=== PATIENT | male | born 1955 | race Caucasian/White ===

== ENCOUNTER 2017-07-02 14:46 | Emergency (ER) | payer BC, OTHER ==
[2017-07-02 15:11] VITALS: BP 140/86; PULSE 65; RESP 18; TEMP 98; O2SAT 96
--- NOTE | 2017-07-02 16:14 | CT ---
PROCEDURE: CT Cervical Spine without contrast HISTORY: Decrease range of motion left shoulder. COMPARISON: None available. TECHNIQUE: Axial computed tomography images were obtained of the cervical spine without the use of intravenous contrast. Coronal and sagittal reformatted images were created and reviewed. Radiation dose: Total exam DLP = 506.59 mGy-cm. This CT exam was performed using one or more of the following dose reduction techniques: Automated exposure control, adjustment of the mA and/or kV according to patient size, and/or use of iterative reconstruction technique. FINDINGS: VERTEBRAE: The vertebral bodies are maintained in height. Normal vertebral alignment is maintained. There is no evidence of fracture. DISCS/SPINAL CANAL/NEURAL FORAMINA: There is severe intervertebral disc space narrowing at C5-6. Lesser disc space narrowing is noted at C6-7 and C7-T1. Consistent with multifocal degenerative disc disease. There is moderate left and severe right neural foraminal stenosis at the C4-5 intervertebral disc space level. . There is mild central spinal stenosis. There is moderate left and severe right neural foraminal stenosis at the C5-6 level. There is a disc/ridge complex at C5-6, asymmetric towards the right. There is central spinal stenosis at C5-6. There is mild disc bulge at C6-7. There is no focal herniation. There is moderate to severe right and moderate left neural foraminal stenosis at C6-7. There is no central spinal stenosis. There is no disc bulge or herniation at C7-T1. There is no central spinal stenosis. There is no neural foraminal stenosis. PARASPINAL SOFT TISSUES: There is calcification seen within the nuchal ligament, of questionable clinical significance. OTHER FINDINGS: None. IMPRESSION: No fracture/dislocation. Multilevel degenerative disc disease. Central spinal stenosis at C5-6 and mild central spinal stenosis at C4-5. . Multilevel neural foraminal stenosis. Please note that computed tomography is an insensitive method for evaluation of cervical spinal disc disease. Consider evaluation with magnetic resonance imaging on a nonemergent basis. .
--- NOTE | 2017-07-02 18:00 | C.PDOC ---
History Of Present Illness 62 yr old male presents to the ER with left neck pain and upper back pain for the past 2 weeks. Patient states the pain radiates down the left arm. Patient states he has been using Advil with mild relief and had acupuncture done yesterday. Patient denies direct trauma, chest pain, SOB, weakness or numbness. Time Seen by Provider: 07/02/17 15:12 Chief Complaint (Nursing): Back Pain History Per: Patient History/Exam Limitations: no limitations Onset/Duration Of Symptoms: Days (2 weeks) Past Medical History Reviewed: Historical Data, Nursing Documentation, Vital Signs Vital Signs: Last Vital Signs Temp 98.0 F 07/02/17 15:08 Pulse 65 07/02/17 15:08 Resp 18 07/02/17 15:08 BP 140/86 07/02/17 15:08 Pulse Ox 96 07/02/17 18:03 - Medical History PMH: Anxiety, Arthritis, Back Problems, Fractures (lumbar fx), Kidney Stones Surgical History: Appendectomy Family History: States: No Known Family Hx - Social History Hx Tobacco Use: No Hx Alcohol Use: No Hx Substance Use: No - Immunization History Hx Tetanus Toxoid Vaccination: No Hx Influenza Vaccination: No Hx Pneumococcal Vaccination: No Review Of Systems Except As Marked, All Systems Reviewed And Found Negative. Cardiovascular: Negative for: Chest Pain Respiratory: Negative for: Shortness of Breath Musculoskeletal: Positive for: Neck Pain, Arm Pain (Radiating pain to left arm. ), Back Pain (Upper back pain ) Neurological: Negative for: Weakness, Numbness Physical Exam - Physical Exam Appears: Non-toxic, No Acute Distress Skin: Warm, Dry, No Rash Head: Atraumatic, Normacephalic Oral Mucosa: Moist Neck: Supple, Other (Full ROM rotating to the right. Minimal rotation to the left. ) Chest: Symmetrical, No Tenderness Cardiovascular: Rhythm Regular, No Murmur Respiratory: Normal Breath Sounds, No Rales, No Rhonchi, No Stridor, No Wheezing Extremity: Capillary Refill (<2), Other (Decrease flexion and extention of left arm. Hypertonicity at the left trapezius.) Pulses: Left Radial: Normal, Right Radial: Normal Neurological/Psych: Oriented x3, Normal Speech, Normal Motor ED Course And Treatment O2 Sat by Pulse Oximetry: 96 (RA ) Pulse Ox Interpretation: Normal Medical Decision Making Medical Decision Making: PLAN: * CT - Cervical Spine Disposition - Disposition Referrals: Lisa Cortes Mariselgricel, [Non-Staff] - Disposition: HOME/ ROUTINE Disposition Time: 16:20 Condition: GOOD Additional Instructions: Thank you for letting us take care of you today. Your provider was Dr. Dougherty. You were treated for neck and back pain. The emergency medical care you received today was directed at your acute symptoms. If you were prescribed any medication, please fill it and take as directed. It may take several days for your symptoms to resolve. Return to the Emergency Department if your symptoms worsen, do not improve, or if you have any other problems. Please contact your doctor or call one of the physicians/clinics you have been referred to that are listed on the Patient Visit Information form that is included in your discharge packet. Bring any paperwork you were given at discharge with you along with any medications you are taking to your follow up visit. Our treatment cannot replace ongoing medical care by a primary care provider (PCP) outside of the emergency department. Thank you for allowing the [facility] team to be part of your care today. Follow up with your doctor in 3-4 days for re-evaluation and further management. Prescriptions: Cyclobenzaprine [Cyclobenzaprine HCl] 10 mg PO Q8 PRN #20 tab PRN Reason: Muscle Spasm Ibuprofen [Motrin] 600 mg PO Q6 PRN #20 tab PRN Reason: Pain, Moderate (4-7) Instructions: Cervical Spinal Stenosis (ED) Forms: [employer] (Colombian) - Clinical Impression Clinical Impression: Back pain - Scribe Statement The provider has reviewed the documentation as recorded by the Izzy Palm Provider Attestation: All medical record entries made by the Izzy were at my direction and personally dictated by me. I have reviewed the chart and agree that the record accurately reflects my personal performance of the history, physical exam, medical decision making, and the department course for this patient. I have also personally directed, reviewed, and agree with the discharge instructions and disposition.
== END 2017-07-02 16:32 | disposition home or self-care (01) ==
LOC: C.ER 14:46
DX: M54.6 Pain in thoracic spine (principal)

== ENCOUNTER 2019-02-22 16:11 | Emergency (ER) | payer OTHER ==
[2019-02-22 16:36] VITALS: RESP 20
--- NOTE | 2019-02-22 16:55 | C.PDOC ---
History Of Present Illness 63 year old male presents to ED with complaint of chest pain for the past week. He states that his last episode was prior to arrival. Patient also complains of new onset associated palpitations that occurred today that have resolved. Patient is currently asymptomatic. He states that he takes Xanax and denies use of other medications. He denies history of smoking. Patient has a PMHx of similar chest pain "years ago." Patient denies SOB, nausea, and vomiting. CP X 1 WK. 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 CURRENTLY ASYMPT. PS TAKES XANAX DENIES OTHER MED USE. HO SIM CP "YEARS AGO". NO SMOKE EXAM NEG Time Seen by Provider: 02/22/19 16:20 History Per: Patient History/Exam Limitations: no limitations Onset/Duration Of Symptoms: Days (7) Current Symptoms Are (Timing): Gone Quality: "Pain" Associated Symptoms: denies: Nausea, Dyspnea Past Medical History Reviewed: Historical Data, Nursing Documentation, Vital Signs Vital Signs: Last Vital Signs Temp 98.3 F 02/22/19 16:29 Pulse 64 02/22/19 16:29 Resp 20 02/22/19 16:29 BP Pulse Ox 97 02/22/19 16:29 - Medical History PMH: Anxiety, Arthritis, Back Problems, Fractures (lumbar fx), Kidney Stones Surgical History: Appendectomy Family History: States: Unknown Family Hx - Social History Hx Tobacco Use: No Hx Alcohol Use: No Hx Substance Use: No - Immunization History Hx Tetanus Toxoid Vaccination: No Hx Influenza Vaccination: No Hx Pneumococcal Vaccination: No Review Of Systems Constitutional: Negative for: Fever, Chills, Weakness Cardiovascular: Positive for: Chest Pain, Palpitations Respiratory: Negative for: Shortness of Breath Gastrointestinal: Negative for: Nausea, Vomiting Neurological: Negative for: Weakness, Numbness, Dizziness Physical Exam - Physical Exam Appears: Well, Non-toxic, No Acute Distress Skin: Normal Color, Warm, Dry Head: Atraumatic, Normacephalic Neck: Normal ROM, Supple Chest: Symmetrical, No Deformity, No Tenderness Cardiovascular: Rhythm Regular, No Murmur Respiratory: No Accessory Muscle Use, No Rales, No Rhonchi, No Wheezing, Other (NARD) Gastrointestinal/Abdominal: Soft, No Tenderness Extremity: Capillary Refill (<2 seconds) Pulses: Left Radial: Normal, Right Radial: Normal Neurological/Psych: Oriented x3, Normal Speech, Normal Cognition ED Course And Treatment - Laboratory Results Result Diagrams: 02/22/19 17:34 02/22/19 17:34 ECG: Interpreted By Me ECG Rhythm: Sinus Rhythm ECG Interpretation: Normal Rate From EC O2 Sat by Pulse Oximetry: 97 (in RA) Pulse Ox Interpretation: Normal - Radiology CXR: Interpreted by Me, Viewed By Me CXR Interpretation: Yes: No Acute Disease Nexus Criteria: Negative Progress Note: EKG and CXR ordered for patient. Labs ordered with CMP, CBC, and troponin. Reevaluation Time: 18:23 Reassessment Condition: Unchanged (NO RECUR SX SINCE INITIAL EVAL. VSS. PT ADVISED NEED PMD FU FOR POSISBLE OUTPT CARDIAC TESTING) Disposition Counseled Patient/Family Regarding: Studies Performed, Diagnosis, Need For Followup - Disposition Referrals: YOUR,PMD [Other] Disposition: HOME/ ROUTINE Disposition Time: 18:25 Condition: GOOD Additional Instructions: FOLLOW UP WITH YOUR PMD THIS WEEK FOR POSSIBLE ADDITIONAL HEART TESTING. RETURN IF WORSENING SYMPTOMS. Instructions: Chest Pain (DC), Palpitations (DC) - Clinical Impression Clinical Impression: Chest pain, Anxiety, Palpitations - Scribe Statement The provider has reviewed the documentation as recorded by the Scribe (Mirna Nayak) All medical record entries made by the Scribe were at my direction and person ally dictated by me. I have reviewed the chart and agree that the record accurately reflects my personal performance of the history, physical exam, medical decision making, and the department course for this patient. I have also personally directed, reviewed, and agree with the discharge instructions and disposition.
[2019-02-22 17:38] LABS: BASO # 0.1 K/uL (0.0-0.2); BASO % 0.8 % (0.0-2.0); EOS # 0.4 K/uL (0.0-0.7); EOS % 4.7 % (0.0-4.0); HEMOGLOBIN 15.5 g/dL (12.0-18.0); LYMPH # 1.6 K/uL (1.0-4.3); LYMPH % 19.4 % (20.0-40.0); MEAN CELL VOLUME 88.6 fL (80.0-94.0); MEAN CORPUSCULAR HGB CONC 33.8 g/dL (33.0-37.0); MEAN PLATELET VOLUME 8.3 fL (7.2-11.7); MONO # 0.6 K/uL (0.0-0.8); MONO % 7.4 % (0.0-10.0); NEUT # 5.8 K/uL (1.8-7.0); NEUT % 67.7 % (50.0-75.0); RBC 5.17 Mil/uL (4.40-5.90); RED CELL DISTRIBUTION WIDTH 13.5 % (11.5-14.5); WHITE BLOOD COUNT 8.5 K/uL (4.8-10.8)
--- NOTE | 2019-02-22 17:51 | RAD ---
HISTORY: chest pain COMPARISON: Chest x-ray performed 12/14/14 TECHNIQUE: Chest PA and lateral, 2 views FINDINGS: LUNGS: No focal consolidation. Please note that chest x-ray has limited sensitivity for the detection of pulmonary masses. PLEURA: No significant pleural effusion identified. No definite pneumothorax . CARDIOVASCULAR: Heart size appears within normal limits. Atherosclerotic calcifications of the aortic knob. OSSEOUS STRUCTURES: Degenerative changes of the spine. VISUALIZED UPPER ABDOMEN: Unremarkable. OTHER FINDINGS: None. IMPRESSION: No focal consolidation.
[2019-02-22 17:53] LABS: ALB/GLOB RATIO 1.6 (1.0-2.1); ALBUMIN 4.3 g/dL (3.5-5.0); ALT/SGPT 20 U/L (21-72); AST/SGOT 20 U/L (17-59); BLOOD UREA NITROGEN 14 mg/dL (9-20); CALCIUM 9.4 mg/dl (8.6-10.4); GFR NON-AFRICAN AMERICAN > 60
[2019-02-22 18:32] VITALS: BP 122/72; PULSE 62; TEMP 98.5; O2SAT 96
--- NOTE | 2019-02-23 12:58 | CARD ---
APPROVED REPORT Date of service: 02/22/2019 EKG Measurement Heart [id number] <Conclusion> Normal sinus rhythm Borderline ECG
== END 2019-02-22 18:34 | disposition home or self-care (01) ==
LOC: C.ER 16:11
DX: F41.9 Anxiety disorder, unspecified (principal); R07.9 Chest pain, unspecified; R00.2 Palpitations